=== PATIENT | male | born 1960 | race Caucasian/White ===

== ENCOUNTER 2019-08-29 05:24 | Observation (INO) | payer BC, OTHER ==
[~2019-08-29] VITALS: Ht 185.4 cm; Wt 116.1 kg
[~2019-08-29 05:24] MED LIST: AMOCLA875 PO; HYDACE10B PO; HYDACE5325 PO; IBUHYD PO; IBUP600 PO
[2019-08-29 06:01] LABS: BASOPHILS ABSOLUTE AUTO 0.05 K/mm3 (0.00-0.23); BASOPHILS PERCENT AUTO 1 % (0-2); EOSINOPHILS ABSOLUTE AUTO 0.11 K/mm3 (0.00-0.68); EOSINOPHILS PERCENT AUTO 2 % (0-6); Hematocrit 46.4 % (37.0-53.0); Hemoglobin 15.5 g/dL (13.5-17.5); IMMATURE GRAN ABSOLUTE AUTO 0.03 K/mm3 (0.00-0.10); IMMATURE GRAN PERCENT AUTO 0 % (0-1); LYMPHOCYTES ABSOLUTE AUTO 1.14 K/mm3 (0.84-5.20); LYMPHOCYTES PERCENT AUTO 15 % (21-46); MONOCYTES ABSOLUTE AUTO 0.47 K/mm3 (0.16-1.47); MONOCYTES PERCENT AUTO 6 % (4-13); Mean Corpuscular HGB 30.8 pg (26.0-34.0); Mean Corpuscular HGB Conc 33.4 g/dL (31.5-36.5); Mean Corpuscular Volume 92 fL (80-100); Mean Platelet Volume 9.1 fL (9.1-12.4); NEUTROPHILS ABSOLUTE AUTO 5.75 K/mm3 (1.96-9.15); NEUTROPHILS PERCENT AUTO 76 % (41-73); Platelet Count 208 K/mm3 (150-400); RDW Coefficient Variation 12.9 % (11.7-14.2); RDW Standard Deviation 43.6 fL (35.1-46.3); Red Blood Cell Count 5.03 M/mm3 (4.30-5.90); White Blood Cell Count 7.55 K/mm3 (4.00-11.30)
[2019-08-29 06:19] LABS: Alanine Aminotransfer (ALT/SGP 35 U/L (12-78); Albumin, Blood 3.8 g/dL (3.4-5.0); Albumin/Globulin Ratio 1.1 (0.8-1.8); Alk Phos 76 U/L (50-136); Anion Gap 8 mmol/L (6-16); Aspartate Aminotrans (AST/SGOT 28 U/L (12-37); Bilirubin, Total 0.5 mg/dL (0.1-1.0); Blood Urea Nitrogen 17 mg/dL (8-24); Bun/Creatinine Ratio 17.9 (12.0-20.0); CO2, Blood 27 mmol/L (21-32); Calcium, Blood 9.4 mg/dL (8.5-10.1); Chloride, Blood 107 mmol/L (98-108); Creatinine, Blood 0.95 mg/dL (0.60-1.20); Globulin, Blood 3.6 g/dL (2.2-4.0); Glomerular Filtration Rate >60 (60-); Glucose, Blood 135 mg/dL (70-99); Potassium, Blood 3.9 mmol/L (3.5-5.5); Sodium, Blood 142 mmol/L (136-145); Total Protein, Blood 7.4 g/dL (6.4-8.2)
[2019-08-29] MEDS ORDERED: TAMS.4ER PO (06:56)
[2019-08-29] MEDS ORDERED: DOXE10 (06:56)
[2019-08-29 07:16] LABS: Source, Urine Clean Catch
[2019-08-29 07:21] LABS: Appearance, Urine Clear (Clear); Bilirubin, Urine Neg (Neg); Blood, Urine Neg (Neg); Color, Urine Yellow (P-Yellow); Glucose Qualitative, Urine Neg (Neg); Ketones, Urine 3+ (Neg); Leukocyte Esterase, Urine Neg (Neg); Nitrite, Urine Neg (Neg); Protein, Urine Neg (Neg); Specific Gravity, Urine 1.015 (1.003-1.022); Urobilinogen, Urine NORM (Normal)
--- NOTE | 2019-08-29 16:53 | NUR ---
PT RECENTLY TO ROOM, DENIES ANY PAIN. REPORTS NAUSEA, MED FOR NAUSEA. PT UP TO BATHROOM WHEN TO ROOM. PT VOIDED. PT REPORTS HX OF ENLARGED PROSTATE. FAMILY PRESENT. VSS.
--- NOTE | 2019-08-29 19:26 | NUR ---
DR BEEN RECENTLY NOTIFIED OF PT ONLY BEING ABLE TO HAVE DRIBBLES WHEN ATTEMPTING TO VOID. BLADDER SCAN OVER 400, PT REQ TO HAVE I/O CATH COMPLETED TO RELIEVE PRESSURE HE IS FEELING PAINFUL. PT REPORTS TAKING 0.8 OF FLOMAX AT BEDTIME. DR NOTIFIED, REPORTS TO COMPLETE I/O CATH AND ORDER FLOMAX, SEE ORDERS. I/O CATH COMPLETED WITH STERILE TECHNIQUE RESULTING IN 600 URINE. PT TOLERATED WELL. HS RN BEEN GIVEN REPORT. PT WAS HAVING NAUSEA WHEN FIRST BACK FROM SURGERY, MED PER ORDERS. PT REPORTED IT HELPED HIS NAUSEA.
--- NOTE | 2019-08-29 19:55 | NUR ---
PT UNSURE OF DOSES OF SINAQUIN AND NORCO, REPORTS WILL BE FINE WITHOUT THEM.
--- NOTE | 2019-08-30 05:28 | NUR ---
SHIFT SUMMARY PT S/P LAP SEAN. A/O X4. SBA OR IND. TO BATHROOM. PT HAS BEEN VOIDING SMALL AMOUNTS OF URINE BUT DID NEED TO BE STRAIGHT CATH'D ONCE FOR RETENTION. PT TOLERATING CLEAR LIQUIDS WELL. NO NAUSEA. PT MED FOR PAIN ONCE DURING THE NIGHT. NO ACUTE CHANGES.
--- NOTE | 2019-08-30 10:13 | NUR ---
DISCHARGE: PT TOLERATING DIET, VOIDING NORMAL, PASSING GAS. PT REPORTS UNDERSTANDING OF DISCHARGE INSTRUCTIONS. PT REQ TO AMBULATE OUT OF HOSPITAL. PT REPORTS HAVING PAIN MEDICATION AT HOME. DR JORDAN REPORTED PT MAY GO WITHOUT HAVING LOVENOX.
== END 2019-08-30 10:15 | disposition home or self-care (01) ==
LOC: ER 05:24 → SURS 05:25 → ER 12:59 → SURS 12:59
PROVIDERS: Emergency Medicine; ADMIT Surgery
PROC: 0FT44ZZ Resection of Gallbladder, Percutaneous Endoscopic Approach (ICD-10-PCS; principal; 2019-08-29 12:00)
DX: K80.12 Calculus of gallbladder with acute and chronic cholecystitis without obstruction (principal); Z11.59 Encounter for screening for other viral diseases
CPT/HCPCS: 36415; 74177; 74300; 76705; 80053; 81003; 83690; 84484; 85025; 88304; 93005; 93010; 96361-59; 96365-59; 96375-59; 96376-59; 99285-25; A9270-GY; C1729; G0378; J1100; J1170; J1885; J2250; J2405; J2543; J2550; J2704; J3010; J7120; Q9967; U0002

== ENCOUNTER → 2023-07-31 | Outpatient (CLI) | payer MEDICARE, BC ==
[~2023-07-31] MED LIST changes: +DOXE10; +TAMS.4ER PO
[2023-08-02 12:32] LABS: CYCLIC CITRULLINATED PEP,IGG/A 6 Units (0-19)
== END ==
LOC: LAB 15:05 → LAB SHORT 15:05
PROVIDERS: Family Medicine
DX: M13.0 Polyarthritis, unspecified (principal)
CPT/HCPCS: 85651; 86140; 86200; 86430

== ENCOUNTER 2023-10-30 19:27 | Emergency (ER) | payer MEDICARE, BC ==
[~2023-10-30] VITALS: Ht 185.4 cm; Wt 113.4 kg
[2023-10-30 19:37] VITALS: BP 152/110
== END 2023-10-30 20:55 | disposition home or self-care (01) ==
LOC: ER 19:27
DX: N40.1 Benign prostatic hyperplasia with lower urinary tract symptoms (principal); R33.8 Other retention of urine; Z98.890 Other specified postprocedural states; Z88.1 Allergy status to other antibiotic agents; Z79.899 Other long term (current) drug therapy
CPT/HCPCS: 51798; 99283

== ENCOUNTER → 2025-02-08 | Outpatient (CLI) | payer MEDICARE, BC ==
[2025-02-08 10:48] LABS: BASOPHILS ABSOLUTE AUTO 0.05 K/mm3 (0.00-0.23); BASOPHILS PERCENT AUTO 1 % (0-2); EOSINOPHILS ABSOLUTE AUTO 0.03 K/mm3 (0.00-0.68); EOSINOPHILS PERCENT AUTO 0 % (0-6); Hematocrit 45.1 % (37.0-53.0); Hemoglobin 15.2 g/dL (13.5-17.5); IMMATURE GRAN ABSOLUTE AUTO 0.03 K/mm3 (0.00-0.10); IMMATURE GRAN PERCENT AUTO 0 % (0-1); LYMPHOCYTES ABSOLUTE AUTO 0.88 K/mm3 (0.84-5.20); LYMPHOCYTES PERCENT AUTO 10 % (21-46); MONOCYTES ABSOLUTE AUTO 0.64 K/mm3 (0.16-1.47); MONOCYTES PERCENT AUTO 8 % (4-13); Mean Corpuscular HGB Conc 33.7 g/dL (31.5-36.5); Mean Corpuscular Volume 90 fL (80-100); NEUTROPHILS ABSOLUTE AUTO 6.81 K/mm3 (1.96-9.15); NEUTROPHILS PERCENT AUTO 81 % (41-73); NRBC ABSOLUTE 0.00 K/mm3 (0.00-0.02); NRBC Auto 0.0 /100 WBC (0.0-0.2); Platelet Count 183 K/mm3 (150-400); RDW Coefficient Variation 13.2 % (11.7-14.2); RDW Standard Deviation 43.1 fL (35.1-46.3)
[2025-02-08 11:03] LABS: Alanine Aminotransfer (ALT/SGP 36.0 U/L (12-78); Albumin, Blood 3.6 g/dL (3.4-5.0); Albumin/Globulin Ratio 1.0 (0.8-1.8); Anion Gap 10.0 mmol/L (3-11); Aspartate Aminotrans (AST/SGOT 29.0 U/L (12-37); Bilirubin, Total 0.7 mg/dL (0.1-1.0); Blood Urea Nitrogen 20.0 mg/dL (8-24); CO2, Blood 29.0 mmol/L (21-32); Calcium, Blood 9.5 mg/dL (8.5-10.1); Chloride, Blood 104.0 mmol/L (98-108); Creatinine, Blood 1.12 mg/dL (0.60-1.20); Globulin, Blood 3.7 g/dL (2.2-4.0); Glucose, Blood 109.0 mg/dL (70-99); Potassium, Blood 3.8 mmol/L (3.5-5.5); Sodium, Blood 139.0 mmol/L (136-145); Total Protein, Blood 7.3 g/dL (6.4-8.2)
[2025-02-08 11:30] LABS: CHOL/HDL RATIO 3.9; Cholesterol 243 mg/dL (50-200); HDL Cholesterol 62 mg/dL (>39); LDL/HDL RATIO 2.6; Low Density Lipoprotein Chol 164 mg/dL (<110); Triglycerides 84 mg/dL (30-160); Very Low Density Lipoprot Chol 16 mg/dL (6-32)
[2025-02-08 15:12] LABS: Prostate Specific Antigen 12.200 ng/mL (0.000-4.000)
== END | disposition home or self-care (01) ==
LOC: LAB 10:37 → LAB SHORT 10:37
PROVIDERS: Physician Assistant
DX: Z12.5 Encounter for screening for malignant neoplasm of prostate (principal); E78.00 Pure hypercholesterolemia, unspecified; R10.9 Unspecified abdominal pain; R53.83 Other fatigue; R31.9 Hematuria, unspecified
CPT/HCPCS: 80053; 80061; 84443; 85025; 87086; G0103